=== PATIENT | female | born 1980 | race African-American/Black ===

== ENCOUNTER 2018-08-26 20:17 | Emergency (ER) | payer MEDICAID, OTHER ==
[~2018-08-26] VITALS: Ht 172.7 cm; Wt 75.0 kg
[2018-08-26] MEDS ORDERED: KETOROLAC 30MG/ML VIAL IM ONE (23:00)
[2018-08-27 01:33] VITALS: BP 105/60
== END 2018-08-27 01:48 | disposition home or self-care (01) ==
LOC: ER 20:17
DX: S80.02XA Contusion of left knee, initial encounter (principal); W18.39XA Other fall on same level, initial encounter; Y93.89 Activity, other specified; Y92.89 Other specified places as the place of occurrence of the external cause; Y99.8 Other external cause status
CPT/HCPCS: 73562; 73590; 96372; 99283; J1885; L1830